=== PATIENT | male | born 1955 | race Caucasian/White ===

== ENCOUNTER 2017-10-27 19:00 | Observation (INO) | payer SELFPAY ==
[~2017-10-27] VITALS: Ht 162.6 cm; Wt 83.0 kg
[2017-10-27 04:00] VITALS: BP 136/86; PULSE 95; RESP 16; TEMP 98.5; O2SAT 99
[2017-10-27 19:11] VITALS: BP 115/77; PULSE 111; RESP 16; TEMP 98.7; O2SAT 95
[2017-10-27] MEDS ORDERED: SIMV20TA PO (19:11)
[2017-10-27] MEDS ORDERED: ASPI81CH6 CHEW (19:14)
[2017-10-27] MEDS ORDERED: bp medication (19:15)
[2017-10-27 19:19] VITALS: O2SAT 96
--- NOTE | 2017-10-27 19:20 | PD ---
HPI Chief Complaint: Chest Pain Time Seen by Provider: 19:11 Travel History International Travel<30 days: No Contact w/Intl Traveler<30days: No Traveled to known affect area: No History of Present Illness HPI 62-year-old male with reported history of CAD with 2 stents, hypertension, hyperlipidemia, tobaccoism, brought in by [facility] for evaluation of chest pain. Patient describes left-sided chest pressure/heaviness that started about an hour prior to arrival. He was given 324 mg of aspirin as well as 2 sublingual nitro sprays by EMS and reports that his pain is slightly improved and is now a 7 out of 10, constant, no modifying factors. No paresthesias or motor deficits. No history of DVT or PE. He denies illicit drug use. He admits t to drinking 2 beers today. Apparently he was released from [facility] yesterday. PFSH Past Medical History Hx Anticoagulant Therapy: Yes (aspirin ) Social History Tobacco Use: Yes Allergies-Medications (Allergen,Severity, Reaction): Coded Allergies: codeine (Verified Allergy, Unknown, 10/27/17) trifluoperazine (Verified Allergy, Unknown, 10/27/17) Reported Meds & Prescriptions Reported Meds & Active Scripts Active Reported [bp medication ] Aspirin Low Dose (Aspirin) 81 Mg Chew 81 Mg CHEW DAILY Simvastatin 20 Mg Tab 20 Mg PO DAILY Review of Systems Except as stated in HPI: all other systems reviewed are Neg Physical Exam Narrative GENERAL: Well-developed, well-nourished, no apparent distress. SKIN: Focused skin assessment warm/dry. HEAD: Atraumatic. Normocephalic. EYES: Pupils equal and round. No scleral icterus. No injection or drainage. ENT: Mucous membranes pink and moist. NECK: Trachea midline. No JVD. CARDIOVASCULAR: Tachycardic, rate 110, regular. Distal pulses brisk and equal bilaterally. RESPIRATORY: No accessory muscle use. Clear to auscultation. Breath sounds equal bilaterally. GASTROINTESTINAL: Abdomen soft, non-tender, nondistended. MUSCULOSKELETAL: No obvious deformities. No clubbing. No cyanosis. No edema. NEUROLOGICAL: Awake and alert. No obvious cranial nerve deficits. Motor grossly within normal limits. Normal speech. PSYCHIATRIC: Appropriate mood and affect; insight and judgment normal. Data Data Last Documented VS Vital Signs Date Time Temp Pulse Resp B/P (MAP) Pulse Ox O2 Delivery O2 Flow Rate FiO2 10/27/17 21:37 86 18 124/78 (93) 98 Nasal Cannula 2.00 10/27/17:11 98.7 Orders Orders Electrocardiogram (10/27/17:) Ckmb (Isoenzyme) Profile (10/27/17:16) Complete Blood Count With Diff (10/27/17:) Comprehensive Metabolic Panel (10/27/17:) Magnesium (Mg) (10/27/17:) Prothrombin Time / Inr (Pt) (10/27/17:) Act Partial Throm Time (Ptt) (10/27/17:) Troponin I (10/27/17:) Chest, Single Ap (10/27/17:) Ecg Monitoring (10/27/17:) Iv Access Insert/Monitor (10/27/17:) Oximetry (10/27/17:) Sodium Chloride 0.9% Flush (Ns Flush) (10/27/17 19:30) Nitroglycerin Sl (Nitrostat Sl) (10/27/17 19:30) D-Dimer (10/27/17:) Alcohol (Ethanol) (10/27/17:) Drug Screen, Random Urine (10/27/17:) CKMB (10/27/17 19:30) CKMB% (10/27/17 19:30) Ct Pulmonary Angiogram (10/27/17 20:25) Sodium Chlor 0.9% 1000 Ml Inj (Ns 1000 M (10/27/17 20:30) Lipase (10/27/17 20:26) Morphine Inj (Morphine Inj) (10/27/17 21:45) Iohexol 350 Inj (Omnipaque 350 Inj) (10/27/17 22:07) Admit Order (Ed Use Only) (10/27/17 22:39) Activity Bed Rest With Brp (10/27/17 22:40) Vital Signs (Adult) Q4H (10/27/17 22:40) Cardiac Rhythm .As Directed (10/27/17 22:40) Notify Dr: Other .PRN (10/27/17 22:40) Notify Dr. Parameters (10/27/17 22:40) Resp Oxygen Nasal Cannula (10/27/17 ) Ckmb (Isoenzyme) Profile (10/27/17 22:40) Ckmb (Isoenzyme) Profile (10/28/17 01:40) Troponin I (10/27/17 22:40) Troponin I (10/28/17 01:40) Electrocardiogram (10/27/17 22:40) Electrocardiogram (10/28/17 01:40) ^ Obtain (10/27/17 22:40) Sodium Chloride 0.9% Flush (Ns Flush) (10/27/17 22:45) Sodium Chloride 0.9% Flush (Ns Flush) (10/28/17 09:00) Tar Leveler / Telemetry ALEXANDER.Q8H (10/27/17 22:40) Labs Laboratory Tests Test 10/27/17 19:30 10/27/17 20:35 White Blood Count 20.4 TH/MM3 Red Blood Count 4.69 MIL/MM3 Hemoglobin 13.7 GM/DL Hematocrit 40.4 % Mean Corpuscular Volume 86.1 FL Mean Corpuscular Hemoglobin 29.3 PG Mean Corpuscular Hemoglobin Concent 34.0 % Red Cell Distribution Width 13.8 % Platelet Count 307 TH/MM3 Mean Platelet Volume 8.0 FL Neutrophils (%) (Auto) 77.9 % Lymphocytes (%) (Auto) 13.3 % Monocytes (%) (Auto) 7.5 % Eosinophils (%) (Auto) 0.4 % Basophils (%) (Auto) 0.9 % Neutrophils # (Auto) 15.9 TH/MM3 Lymphocytes # (Auto) 2.7 TH/MM3 Monocytes # (Auto) 1.5 TH/MM3 Eosinophils # (Auto) 0.1 TH/MM3 Basophils # (Auto) 0.2 TH/MM3 CBC Comment DIFF FINAL Differential Comment Prothrombin Time 11.6 SEC Prothromb Time International Ratio 1.1 RATIO Activated Partial Thromboplast Time 24.7 SEC D-Dimer Quantitative (PE/DVT) 1.89 MG/L FEU Blood Urea Nitrogen 22 MG/DL Creatinine 1.19 MG/DL Random Glucose 97 MG/DL Total Protein 8.3 GM/DL Albumin 4.2 GM/DL Calcium Level 9.7 MG/DL Magnesium Level 2.0 MG/DL Alkaline Phosphatase 106 U/L Aspartate Amino Transf (AST/SGOT) 39 U/L Alanine Aminotransferase (ALT/SGPT) 32 U/L Total Bilirubin 0.7 MG/DL Sodium Level 137 MEQ/L Potassium Level 4.6 MEQ/L Chloride Level 100 MEQ/L Carbon Dioxide Level 24.8 MEQ/L Anion Gap 12 MEQ/L Estimat Glomerular Filtration Rate 62 ML/MIN Total Creatine Kinase 661 U/L Creatine Kinase MB 3.2 NG/ML Creatine Kinase MB % 0.5 % Troponin I LESS THAN 0.02 NG/ML Lipase 119 U/L Ethyl Alcohol Level 84 MG/DL Urine Opiates Screen NEG Urine Barbiturates Screen NEG Urine Amphetamines Screen NEG Urine Benzodiazepines Screen NEG Urine Cocaine Screen NEG Urine Cannabinoids Screen NEG MDM Medical Decision Making Medical Screen Exam Complete: Yes Emergency Medical Condition: Yes Interpretation(s) EKG: Sinus, rate 112, normal axis, normal intervals, no acute ischemic abnormality. Differential Diagnosis ACS, pneumothorax, pericarditis, PE, pneumonia Narrative Course Initial vital signs show heart rate 111, blood pressure 115/77, pulse ox 95% on room air, oral temp of 98.7F. CBC: WBC 20.4, hemoglobin 13.7, hematocrit 40.4, platelets 307, neutrophils 78%. CMP is essentially unremarkable. Lipase is 119. Cardiac enzymes are negative. Alcohol level is 84. Chest x-ray: Basilar atelectasis and scarring. No consolidation or effusion. D-dimer is elevated at 1.89, therefore CT pulmonary angiogram will be ordered to rule out PE. CT pulmonary angiogram: CONCLUSION: 1. Negative for pulmonary embolus. 2. Mild atelectasis. 3. Dense coronary calcifications. 4. Small hiatal hernia with mild esophageal dilatation probably representing an esophageal motility disorder. The patient was made aware of all findings. His pain did not improve with nitro , however did improve with morphine. He was provided a full dose of aspirin by EMS. On reassessment he is sleeping comfortably. Leukocytosis is nonspecific. He is afebrile. He will be admitted to the chest pain center for further cardiac evaluation. He is amenable to this plan. Diagnosis Primary Impression: Chest pain Qualified Codes: R07.9 - Chest pain, unspecified Admitting Information Admitting Physician Requests: Dom Grimes MD Oct 27, 2017 19:20
[2017-10-27] MEDS: NITROGLYCERIN 0.4 MG SL 25 TABS/BTL SL SCH (19:35)
[2017-10-27 19:51] LABS: AUTOMATED NEUTROPHIL # 15.9 TH/MM3 (1.8-7.7); BASOPHIL # 0.2 TH/MM3 (0-0.2); BASOPHIL % 0.9 % (0.0-2.0); EOSINOPHIL # 0.1 TH/MM3 (0-0.4); EOSINOPHIL % 0.4 % (0.0-4.0); HEMATOCRIT 40.4 % (39.0-51.0); HEMOGLOBIN 13.7 GM/DL (13.0-17.0); LYMPH % 13.3 % (9.0-44.0); LYMPHOCYTE # 2.7 TH/MM3 (1.0-4.8); MEAN CELL VOLUME 86.1 FL (80.0-100.0); MEAN CORPUSCULAR HEMOGLOBIN 29.3 PG (27.0-34.0); MONO % 7.5 % (0.0-8.0); MONOCYTE # 1.5 TH/MM3 (0-0.9); NEUT % 77.9 % (16.0-70.0); PLATELET COUNT 307 TH/MM3 (150-450); RED BLOOD COUNT 4.69 MIL/MM3 (4.50-5.90); RED CELL DISTRIBUTION WIDTH 13.8 % (11.6-17.2); WHITE BLOOD COUNT 20.4 TH/MM3 (4.0-11.0)
[2017-10-27 20:07] LABS: INTERNATIONAL NORMALIZED RATIO 1.1 RATIO; PROTHROMBIN TIME - PATIENT 11.6 SEC (9.8-11.6)
--- NOTE | 2017-10-27 20:07 | RADRPT ---
EXAM DATE/TIME: 10/27/2017 19:34 [facility] COMPARISON: No previous studies available for comparison. INDICATIONS : Chest pain. MEDICAL HISTORY : Hypertension. Chronic obstructive pulmonary disease. Myocardial infarction. SURGICAL HISTORY : None. ENCOUNTER: Initial ACUITY: 1 day PAIN SCORE: 6/10 LOCATION: Left chest FINDINGS: Heart size is within normal limits. Mild basilar density probably atelectasis and scarring. No effusi on. No pneumothorax. CONCLUSION: 1. Basilar atelectasis and scarring. No consolidation or effusion. Baron Baker MD on October 27, 2017 at 20:04 Board Certified Radiologist. This report was verified electronically.
[2017-10-27 20:13] LABS: D-DIMER 1.89 MG/L FEU (0.00-0.50)
[2017-10-27 20:14] LABS: ALBUMIN 4.2 GM/DL (3.4-5.0); AST (GOT) 39 U/L (15-37); BICARBONATE 24.8 MEQ/L (21.0-32.0); BLOOD UREA NITROGEN 22 MG/DL (7-18); CALCIUM 9.7 MG/DL (8.5-10.1); CHLORIDE 100 MEQ/L (98-107); CREATININE 1.19 MG/DL (0.60-1.30); GLOMERULAR FILTRATION RATE 62 ML/MIN (>89); GLUCOSE,RANDOM 97 MG/DL (74-106); SODIUM (NA) 137 MEQ/L (136-145)
[2017-10-27 20:19] LABS: ALKALINE PHOSPHATASE 106 U/L (45-117); ALT (GPT) 32 U/L (12-78); TOTAL BILIRUBIN ADULT 0.7 MG/DL (0.2-1.0); TOTAL PROTEIN 8.3 GM/DL (6.4-8.2); TROPONIN I LESS THAN 0.02 NG/ML (0.02-0.05)
[2017-10-27] MEDS ORDERED: SODIUM CHLOR 0.9% 1000 ML INJ 1,000 ML IV ONE (20:30)
[2017-10-27 21:37] VITALS: BP 124/78; PULSE 86; RESP 18; O2SAT 98
[2017-10-27] MEDS ORDERED: MORPHINE SULFATE 2 MG/ML SYRINGE IV PUSH ONE (21:45)
[2017-10-27] MEDS: SODIUM CHLORIDE 0.9% FLUSH 10 ML FLUSH IVF PRN (21:53)
[2017-10-27] MEDS ORDERED: IOHEXOL 350 MG/ML 10 ML VIAL (for RAD DIAG) IVCONTRAST ONE (22:07)
--- NOTE | 2017-10-27 22:17 | RADRPT ---
EXAM DATE/TIME: 10/27/2017 21:55 [facility] COMPARISON: No previous studies available for comparison. INDICATIONS : Chest pain. IV CONTRAST: 70 cc Omnipaque 350 (iohexol) IV RADIATION DOSE: CTDIvol (mGy) MEDICAL HISTORY : Cardiovascular disease. Hypertension. SURGICAL HISTORY : None. ENCOUNTER: Initial ACUITY: 1 day PAIN SCALE: 5/10 LOCATION: Bilateral chest TECHNIQUE: Volumetric scanning of the chest was performed using a pulmonary embolism protocol MIP images were re constructed. Using automated exposure control and adjustment of the mA and/or kV according to patien t size, radiation dose was kept as low as reasonably achievable to obtain optimal diagnostic quality images. DICOM format image data is available electronically for review and comparison. Follow-up recommendations for detected pulmonary nodules are based at a minimum on nodule size and pa tient risk factors according to Fleischner Society Guidelines. FINDINGS: No filling defects to suggest embolic disease. No adenopathy or effusions. There is an esophageal motility disorder with mild dilatation of the esophagus throughout. There is mild emphysema. No pleural or pericardial effusion. No acute findings in the upper abdomen. Air-fluid level in the stomach. CONCLUSION: 1. Negative for pulmonary embolus. 2. Mild atelectasis. 3. Dense coronary calcifications. 4. Small hiatal hernia with mild esophageal dilatation probably representing an esophageal motility d isorder. Baron Baker MD on October 27, 2017 at 22:11 Board Certified Radiologist. This report was verified electronically.
[2017-10-27] MEDS ORDERED: SODIUM CHLORIDE 0.9% FLUSH 10 ML FLUSH IV FLUSH PRN (22:45)
[2017-10-27 23:00] VITALS: BP 108/69; PULSE 103; RESP 18; O2SAT 96
[2017-10-28 00:01] LABS: TROPONIN I LESS THAN 0.02 NG/ML (0.02-0.05)
[2017-10-28 00:21] VITALS: O2SAT 96
[2017-10-28 02:02] VITALS: BP 144/86; PULSE 98; RESP 16; TEMP 98.7; O2SAT 99
[2017-10-28] MEDS ORDERED: MORPHINE SULFATE 4 MG/ML INJ IV SCH (04:35)
[2017-10-28 04:44] VITALS: PULSE 101
[2017-10-28 05:37] LABS: TROPONIN I LESS THAN 0.02 NG/ML (0.02-0.05)
[2017-10-28] MEDS: SODIUM CHLORIDE 0.9% FLUSH 10 ML FLUSH IVF PRN (05:59)
[2017-10-28] MEDS ORDERED: NITROGLYCERIN 0.4 MG SL 25 TABS/BTL SL PRN (07:30)
[2017-10-28] MEDS ORDERED: ONDANSETRON HCL 4 MG/2 ML VIAL IV PUSH PRN (07:30)
[2017-10-28] MEDS ORDERED: ACETAMINOPHEN 500 MG CPLT PO PRN (07:30)
[2017-10-28 08:00] VITALS: BP 133/91; PULSE 97; RESP 24; TEMP 98.4; O2SAT 94
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
[2017-10-28] MEDS ORDERED: SODIUM CHLORIDE 0.9% FLUSH 10 ML FLUSH IV FLUSH SCH (09:00)
[2017-10-28] MEDS ORDERED: ASPIRIN 325 MG TAB PO SCH (09:00)
[2017-10-28] MEDS ORDERED: REGADENOSON INJ 0.4 MG/5 ML SYR IV ONE (10:30)
[2017-10-28] MEDS ORDERED: AMINOPHYLLINE INJ 500 MG/20 ML VIAL ONE (10:56)
[2017-10-28 11:15] VITALS: BP 136/84; PULSE 110; RESP 24; TEMP 98.7; O2SAT 93
[2017-10-28] MEDS: SODIUM CHLOR 0.9% 1000 ML INJ 1,000 ML IV SCH ×2 (11:22→11:59)
--- NOTE | 2017-10-28 11:46 | RADRPT ---
EXAM DATE/TIME: 10/28/2017 09:43 [facility] COMPARISON: No previous studies available for comparison. INDICATIONS : Chest pain. Angina. Myocardial infarction. DOSE: 27.3 mCi Tc99m Myoview at stress. 8.8 mCi Tc99m Myoview at rest. 0.4 mg Lexiscan STRESS SYMPTOMS: Chest pain and dyspnea. MEDICATIONS: 1.) 100 mg Aminophylline IV EJECTION FRACTION: > 70% MEDICAL HISTORY : Myocardial infarction. Congestive heart failure. Hypertension. COPD SURGICAL HISTORY : Coronary artery stent. Hernia repair. ENCOUNTER: Initial ACUITY: 1 day PAIN SCALE: 7/10 LOCATION: Left chest TECHNIQUE: The patient underwent pharmacologic stress with infusion of prescribed dose. Continuous ECG tracing was monitored during stress. Gated SPECT imaging was performed after stress and conventional SPECT i maging was performed at rest. The examination was performed on a SPECT/CT scanner, both attenuation and non-corrected datasets were reviewed. FINDINGS: DISTRIBUTION: The maximum perfused segment at stress is in the lateral wall. PERFUSION STUDY: The pattern of perfusion at stress shows no reversibility is just ischemia. Fixed and is perfusion to the apex could represent apical thinning or an old apical infarct. GATED STUDY: There is intact wall motion and thickening without hypokinetic or dyskinetic segments. CONCLUSION: 1. No scintigraphic findings of ischemia. 2. Probable apical thinning. 3. Excellent wall motion throughout with estimated ejection fracture greater than 70%. RISK CATEGORY: Low (<1% Annual Mortality Rate) Anthony Johnson MD on October 28, 2017 at 11:41 Board Certified Radiologist. This report was verified electronically.
[2017-10-28] MEDS ORDERED: KETOROLAC TROMETHAMINE 30 MG/ML (IVP) VIAL IV PUSH ONE (12:15)
[2017-10-28] MEDS ORDERED: amLODIPine BESYLATE 5 MG TAB PO ONE (12:45)
[2017-10-28] MEDS ORDERED: AMLO5TAB2 PO ×2 (15:01→15:30)
[2017-10-28] MEDS ORDERED: SIMV20TA PO (15:30)
[2017-10-28 15:41] LABS: BILIRUBIN, URINE NEG (NEG); BLOOD, URINE NEG (NEG); GLUCOSE,URINE NEG (NEG); KETONE, URINE 10 mg/dL (NEG); NITRITE,URINE NEG (NEG); URINE COLOR YELLOW (YELLW/STRAW); URINE LEUKOCYTE ESTERASE NEG (NEG)
--- NOTE | 2017-10-28 16:12 | HHI.DCPOC ---
Discharge Care Plan Diagnosis: (1) Atypical chest pain (2) Hx of coronary artery disease (3) Tobacco abuse (4) Hiatal hernia Goals to Promote Your Health * To prevent worsening of your condition and complications * To maintain your health at the optimal level Directions to Meet Your Goals Take your medications as prescribed Follow your dietary instruction Follow activity as directed Keep your appointments as scheduled Take your immunizations and boosters as scheduled If your symptoms worsen call your PCP, if no PCP go to Urgent Care Center or Emergency Room Smoking is Dangerous to Your Health. Avoid second hand smoke Call the 24-hour hour crisis hotline for domestic abuse at Hailey Godoy Oct 28, 2017 16:12
--- NOTE | 2017-10-28 17:57 | TR ---
Date Performed: 10/28/2017 Time Performed: 10:09:03 DOCTOR: Selam Nunes DRUG LIST: CLINICAL HISTORY: REASON FOR TEST: CHEST PAIN AND NEAR SYNCOPE REASON FOR ENDING: OBSERVATION: CONCLUSION: COMMENTS: Lexiscan stress test was performed under standard four minute protocol. Radionuclide was injected one minute prior to ending the test. No electrocardiographic abormalities were present t o suggest ischemia. Nuclear imaging and interpretation are pending.
--- NOTE | 2017-10-28 17:58 | EKG ---
Date Performed: 10/28/2017 Time Performed: 01:55:46 PTAGE: 62 years EKG: SINUS TACHYCARDIA NONSPECIFIC ST & T-WAVE ABNORMALITY ABNORMAL RHYTHM ECG Since PREVIOUS TRACING , no significant change noted DOCTOR: Selam Nunes Interpretating Date/Time 10/28/2017 17:57:53
--- NOTE | 2017-10-28 17:59 | EKG ---
Date Performed: 10/27/2017 Time Performed: 23:13:15 PTAGE: 62 years EKG: SINUS TACHYCARDIA NONSPECIFIC ST & T-WAVE ABNORMALITY ABNORMAL RHYTHM ECG Since PREVIOUS TRACING , no significant change noted PREVIOUS TRACIN10/27/2017 19.24 DOCTOR: Selam Nunes Interpretating Date/Time 10/28/2017 17:58:15
--- NOTE | 2017-10-28 17:59 | EKG ---
Date Performed: 10/27/2017 Time Performed: 19:24:21 PTAGE: 62 years EKG: SINUS TACHYCARDIA POSSIBLE LEFT ATRIAL ENLARGEMENT NONSPECIFIC T-WAVE ABNORMALITY ABNORMAL RHYTHM ECG NO PREVIOUS TRACING DOCTOR: Selam Nunes Interpretating Date/Time 10/28/2017 17:58:32
[2017-10-29] MEDS ORDERED: OMEP20TA93 PO (14:05)
== END 2017-10-28 16:09 | disposition home or self-care (01) ==
LOC: NEPC 19:00 → NEDA 22:41 → NEDH 10-28 03:09
PROVIDERS: ADMIT Internal Medicine Cardiovascular Disease; ATTEND Internal Medicine Cardiovascular Disease
DX: R07.89 Other chest pain (principal); I25.10 Atherosclerotic heart disease of native coronary artery without angina pectoris; I10 Essential (primary) hypertension; R55 Syncope and collapse; I25.2 Old myocardial infarction; E78.5 Hyperlipidemia, unspecified; J44.9 Chronic obstructive pulmonary disease, unspecified; K44.9 Diaphragmatic hernia without obstruction or gangrene; K22.8 Other specified diseases of esophagus; R00.0 Tachycardia, unspecified; R94.31 Abnormal electrocardiogram [ECG] [EKG]; Y90.4 Blood alcohol level of 80-99 mg/100 ml; Z72.89 Other problems related to lifestyle; Z95.5 Presence of coronary angioplasty implant and graft; F17.200 Nicotine dependence, unspecified, uncomplicated
CPT/HCPCS: 71045; 71275; 78452; 80053; 80307; 81001; 82550; 82552; 83690; 83735; 84484; 85025; 85379; 85610; 85730; 93005; 93017; 96361; 96374; 96375; 96376; 99285; A9502; G0378; J0280; J1885; J2270; J2785; J7030; Q9967

== ENCOUNTER 2017-10-29 11:55 | Emergency (ER) | payer SELFPAY ==
[~2017-10-29 11:55] MED LIST: AMLO5TAB2 PO; ASPI81CH6 CHEW; SIMV20TA PO
[2017-10-29 12:01] VITALS: BP 140/81; PULSE 109; RESP 18; TEMP 98.9; O2SAT 96
[2017-10-29 12:10] VITALS: O2SAT 90
[2017-10-29 12:15] VITALS: O2SAT 99
[2017-10-29] MEDS ORDERED: ASPIRIN 81 MG CHEW TAB PO ONE (12:15)
[2017-10-29] MEDS ORDERED: SODIUM CHLOR 0.9% 1000 ML INJ 1,000 ML IV ONE (12:15)
[2017-10-29] MEDS ORDERED: MORPHINE SULFATE 2 MG/ML SYRINGE IV PUSH ONE (12:15)
[2017-10-29] MEDS ORDERED: ONDANSETRON HCL 4 MG/2 ML VIAL IV PUSH ONE (12:15)
[2017-10-29] MEDS ORDERED: SODIUM CHLORIDE 0.9% FLUSH 10 ML FLUSH IV FLUSH PRN (12:15)
--- NOTE | 2017-10-29 12:35 | PD ---
HPI Chief Complaint: Cardiac Complaint Time Seen by Provider: 12:00 Travel History International Travel<30 days: No Contact w/Intl Traveler<30days: No Traveled to known affect area: No History of Present Illness HPI 62-year-old male presents to the ED via EMS for evaluation of 710 cramping/ shooting epigastric pain. Onset after the patient ate an egg McMuffin for breakfast today. Patient endorses an episode of hematemesis following this. He states that the pain eased after a while but has been intermittent since. He endorses associated palpitations. He denies shortness of breath. He endorses well-formed stools without melena or hematochezia. He states that he has difficulties beginning his urinary stream but denies dysuria. Denies back pain. He endorses drinking one beer today. He endorses history of pancreatitis. Patient states he was just released from prison a few days ago. He was discharged from the hospital yesterday after cardiac stress test. PFSH Past Medical History Hx Anticoagulant Therapy: Yes (aspirin ) Blood Disorders: No Heart Rhythm Problems: No Cancer: Yes (skin cancer) Cardiac Catheterization: Yes (STENTS PLACED) Cardiovascular Problems: Yes High Cholesterol: Yes Chemotherapy: No Chest Pain: Yes Congestive Heart Failure: Yes COPD: Yes Endocrine: No Genitourinary: Yes Hypertension: Yes Implanted Vascular Access Dvce: Yes Musculoskeletal: No Neurologic: No Psychiatric: No Reproductive: No Respiratory: Yes Radiation Therapy: No Past Surgical History Abdominal Surgery: Yes (2 HERNIA REPAIRS) Body Medical Devices: "steel " in right hand and left shoulder Other Surgery: Yes (hernia) Social History Alcohol Use: Yes (3-4 BEERS DAILY) Tobacco Use: Yes (3/4 PPD) Substance Use: No Allergies-Medications (Allergen,Severity, Reaction): Coded Allergies: codeine (Verified Allergy, Unknown, 10/29/17) trifluoperazine (Verified Allergy, Unknown, 10/29/17) Reported Meds & Prescriptions Reported Meds & Active Scripts Active Omeprazole 20 Mg Tab 20 Mg PO DAILY Amlodipine (Amlodipine Besylate) 5 Mg Tab 5 Mg PO DAILY Simvastatin 20 Mg Tab 20 Mg PO DAILY Reported Aspirin Low Dose (Aspirin) 81 Mg Chew 81 Mg CHEW DAILY Review of Systems Except as stated in HPI: all other systems reviewed are Neg Physical Exam Narrative GENERAL: Well-nourished, well-developed white male in no acute distress. SKIN: Focused skin assessment warm/dry. HEAD: Normocephalic. EYES: No scleral icterus. No injection or drainage. NECK: Supple, trachea midline. No JVD or lymphadenopathy. CARDIOVASCULAR: Regular rate and rhythm without murmurs, gallops, or rubs. CHEST: No deformity or crepitus. Tender to palpation in the left inframammary region. No retractions or use of accessory muscles. RESPIRATORY: Breath sounds clear and equal bilaterally. No accessory muscle use. GASTROINTESTINAL: Abdomen soft, nondistended. Tender to palpation in the epigastric region. Active bowel sounds. RECTAL EXAM: No masses or tenderness, stool is brown. Guaiac negative. MUSCULOSKELETAL: No cyanosis, or edema. BACK: Nontender without obvious deformity. No CVA tenderness. Data Data Last Documented VS Vital Signs Date Time Temp Pulse Resp B/P (MAP) Pulse Ox O2 Delivery O2 Flow Rate FiO2 10/29/17 14:53 10/29/17 13:57 18 10/29/17 13:47 100 94 Nasal Cannula 10/29/17 12:10 2.00 10/29/17 12:01 98.9 Orders Orders Complete Blood Count With Diff (10/29/17 12:07) Comprehensive Metabolic Panel (10/29/17 12:07) Lipase (10/29/17 12:07) Urinalysis - C+S If Indicated (10/29/17 12:07) Iv Access Insert/Monitor (10/29/17 12:07) Ecg Monitoring (10/29/17 12:07) Oximetry (10/29/17 12:07) Sodium Chloride 0.9% Flush (Ns Flush) (10/29/17 12:15) Electrocardiogram (10/29/17 12:07) Troponin I (10/29/17 12:07) Magnesium (Mg) (10/29/17 12:07) Chest, Single Ap (10/29/17 12:07) Aspirin Chew (Aspirin Chew) (10/29/17 12:15) Sodium Chlor 0.9% 1000 Ml Inj (Ns 1000 M (10/29/17 12:15) Ondansetron Inj (Zofran Inj) (10/29/17 12:15) Morphine Inj (Morphine Inj) (10/29/17 12:15) Alcohol (Ethanol) (4/13/18 12:07) Ranitidine Liq (Zantac Liq) (10/29/17 14:15) Ed Discharge Order (10/29/17 14:13) Labs Laboratory Tests Test 10/29/17 12:14 10/29/17 12:25 White Blood Count 10.3 TH/MM3 Red Blood Count 3.86 MIL/MM3 Hemoglobin 11.6 GM/DL Hematocrit 33.4 % Mean Corpuscular Volume 86.4 FL Mean Corpuscular Hemoglobin 29.9 PG Mean Corpuscular Hemoglobin Concent 34.6 % Red Cell Distribution Width 14.0 % Platelet Count 262 TH/MM3 Mean Platelet Volume 7.9 FL Neutrophils (%) (Auto) 66.1 % Lymphocytes (%) (Auto) 22.0 % Monocytes (%) (Auto) 9.6 % Eosinophils (%) (Auto) 1.5 % Basophils (%) (Auto) 0.8 % Neutrophils # (Auto) 6.8 TH/MM3 Lymphocytes # (Auto) 2.3 TH/MM3 Monocytes # (Auto) 1.0 TH/MM3 Eosinophils # (Auto) 0.2 TH/MM3 Basophils # (Auto) 0.1 TH/MM3 CBC Comment DIFF FINAL Differential Comment Blood Urea Nitrogen 19 MG/DL Creatinine 0.80 MG/DL Random Glucose 81 MG/DL Total Protein 7.3 GM/DL Albumin 3.5 GM/DL Calcium Level 8.7 MG/DL Magnesium Level 2.1 MG/DL Alkaline Phosphatase 86 U/L Aspartate Amino Transf (AST/SGOT) 45 U/L Alanine Aminotransferase (ALT/SGPT) 29 U/L Total Bilirubin 0.8 MG/DL Sodium Level 140 MEQ/L Potassium Level 3.4 MEQ/L Chloride Level 105 MEQ/L Carbon Dioxide Level 22.2 MEQ/L Anion Gap 13 MEQ/L Estimat Glomerular Filtration Rate 98 ML/MIN Troponin I LESS THAN 0.02 NG/ML Lipase 150 U/L Ethyl Alcohol Level 36 MG/DL Urine Color LIGHT-YELLOW Urine Turbidity CLEAR Urine pH 6.0 Urine Specific [place] 1.005 Urine Protein NEG mg/dL Urine Glucose (UA) NEG mg/dL Urine Ketones NEG mg/dL Urine Occult Blood NEG Urine Nitrite NEG Urine Bilirubin NEG Urine Urobilinogen LESS THAN 2.0 MG/DL Urine Leukocyte Esterase NEG Urine RBC LESS THAN 1 /hpf Urine WBC LESS THAN 1 /hpf Microscopic Urinalysis Comment CULT NOT INDICATED MDM Medical Decision Making Medical Screen Exam Complete: Yes Emergency Medical Condition: Yes Differential Diagnosis Gastritis versus hiatal hernia versus pancreatitis versus malingering versus other Narrative Course 62-year-old male presents to the ED via EMS for evaluation of 7/10 cramping/ shooting epigastric pain. Onset after the patient ate an egg McMuffin for breakfast today. Patient endorses an episode of hematemesis following this. He states that the pain eased after a while but has been intermittent since. He endorses associated palpitations. He endorses well-formed stools without melena or hematochezia. He endorses drinking one beer today. He endorses history of pancreatitis. Patient states he was just released from prison a few days ago. He was discharged from the hospital yesterday after cardiac stress test. Afebrile, pulse 109, BP 140/81 on presentation. Exam reveals some tenderness over the precordium and epigastric region but otherwise unremarkable. IV was established. Patient was administered 4 mg morphine, 4 mg Zofran, 1 L normal saline, 324 mg of aspirin and 100 mg of ranitidine. No concerning abnormalities of the CBC, CMP, UA. Alcohol level 36. I reviewed the patient's record. He had a negative stress test 2 days ago. I suspect his symptoms are from his hiatal hernia. Patient's prescribed short course of omeprazole, instructed to follow-up with the plastics spreading machine operator. He is stable and discharged home. Diagnosis Primary Impression: Hiatal hernia Referrals: [facility] Additional Instructions: Rest, hydrate. Take omeprazole as prescribed. Follow up with a plastics spreading machine operator for evaluation of GERD and hiatal hernia symptoms. Return to the ED for any urgent or emergent medical condition. Med/Other Pt SpecificInfo: Prescription(s) given Scripts Omeprazole (Omeprazole) 20 Mg Tab 20 MG PO DAILY, #30 TAB 0 Refills Prov: Mansi Amezquita MD 10/29/17 Disposition: 01 DISCHARGE HOME Condition: Stable Earlene Otero Oct 29, 2017 12:35
[2017-10-29 12:41] LABS: AUTOMATED NEUTROPHIL # 6.8 TH/MM3 (1.8-7.7); BASOPHIL # 0.1 TH/MM3 (0-0.2); BASOPHIL % 0.8 % (0.0-2.0); EOSINOPHIL # 0.2 TH/MM3 (0-0.4); EOSINOPHIL % 1.5 % (0.0-4.0); HEMATOCRIT 33.4 % (39.0-51.0); HEMOGLOBIN 11.6 GM/DL (13.0-17.0); LYMPHOCYTE # 2.3 TH/MM3 (1.0-4.8); MEAN CELL VOLUME 86.4 FL (80.0-100.0); MEAN CORPUSCULAR HEMOGLOBIN 29.9 PG (27.0-34.0); MEAN CORPUSCULAR HGB CONC 34.6 % (32.0-36.0); MEAN PLATELET VOLUME 7.9 FL (7.0-11.0); MONO % 9.6 % (0.0-8.0); NEUT % 66.1 % (16.0-70.0); PLATELET COUNT 262 TH/MM3 (150-450); RED BLOOD COUNT 3.86 MIL/MM3 (4.50-5.90); WHITE BLOOD COUNT 10.3 TH/MM3 (4.0-11.0)
[2017-10-29 12:42] LABS: BILIRUBIN, URINE NEG (NEG); BLOOD, URINE NEG (NEG); GLUCOSE,URINE NEG (NEG); KETONE, URINE NEG (NEG); NITRITE,URINE NEG (NEG); URINE COLOR LIGHT-YELLOW (YELLW/STRAW); URINE LEUKOCYTE ESTERASE NEG (NEG)
[2017-10-29 13:31] LABS: ALBUMIN 3.5 GM/DL (3.4-5.0); ALKALINE PHOSPHATASE 86 U/L (45-117); ALT (GPT) 29 U/L (12-78); AST (GOT) 45 U/L (15-37); BICARBONATE 22.2 MEQ/L (21.0-32.0); BLOOD UREA NITROGEN 19 MG/DL (7-18); CALCIUM 8.7 MG/DL (8.5-10.1); CHLORIDE 105 MEQ/L (98-107); GLOMERULAR FILTRATION RATE 98 ML/MIN (>89); GLUCOSE,RANDOM 81 MG/DL (74-106); MAGNESIUM 2.1 MG/DL (1.5-2.5); SODIUM (NA) 140 MEQ/L (136-145); TOTAL BILIRUBIN ADULT 0.8 MG/DL (0.2-1.0); TOTAL PROTEIN 7.3 GM/DL (6.4-8.2); TROPONIN I LESS THAN 0.02 NG/ML (0.02-0.05)
[2017-10-29 13:47] VITALS: BP 140/81; PULSE 100; RESP 18; O2SAT 94
[2017-10-29 13:57] VITALS: RESP 18
[2017-10-29] MEDS ORDERED: OMEP20TA93 PO (14:05)
[2017-10-29] MEDS ORDERED: RANITIDINE HCL SYRUP 150 MG/10 ML UDC PO ONE (14:15)
--- NOTE | 2017-10-29 14:37 | RADRPT ---
EXAM DATE/TIME: 10/29/2017 13:53 [facility] COMPARISON: CHEST SINGLE AP, October 27, 2017, 19:34. INDICATIONS : Chest pain. MEDICAL HISTORY : Chronic obstructive pulmonary disease. SURGICAL HISTORY : None. ENCOUNTER: Initial ACUITY: 2 days PAIN SCORE: 3/10 LOCATION: Bilateral chest FINDINGS: Elevation of the left hemidiaphragm with linear platelike opacities in the left lower lung zone. Card iomediastinal contours are stable. Remainder of the exam is unchanged. CONCLUSION: 1. Left lower lung zone atelectasis. Clayton Spann MD on October 29, 2017 at 14:35 Board Certified Radiologist. This report was verified electronically.
--- NOTE | 2017-10-30 17:00 | EKG ---
Date Performed: 10/29/2017 Time Performed: 12:09:51 PTAGE: 62 years EKG: SINUS TACHYCARDIA POSSIBLE LEFT ATRIAL ENLARGEMENT NONSPECIFIC T-WAVE ABNORMALITY ABNORMAL RHYTHM ECG Since the PREVIOUS TRACING , no significant change noted PREVIOUS TRACING 10/28/17 DOCTOR: Selam Nunes Interpretating Date/Time 10/30/2017 16:58:37
== END 2017-10-29 15:19 | disposition home or self-care (01) ==
LOC: NEPE 11:55
DX: K44.9 Diaphragmatic hernia without obstruction or gangrene (principal); R94.31 Abnormal electrocardiogram [ECG] [EKG]; I11.0 Hypertensive heart disease with heart failure; I50.9 Heart failure, unspecified; E78.00 Pure hypercholesterolemia, unspecified; J44.9 Chronic obstructive pulmonary disease, unspecified; F17.210 Nicotine dependence, cigarettes, uncomplicated; K92.0 Hematemesis; Z79.82 Long term (current) use of aspirin; Z79.899 Other long term (current) drug therapy
CPT/HCPCS: 71045; 80053; 80307; 81001; 83690; 83735; 84484; 85025; 93005; 96361; 96374; 96375; 99285; J2270; J2405; J7030